=== PATIENT | male | born 1990 | race Caucasian/White ===

== ENCOUNTER 2019-12-18 17:09 | Emergency (ER) | payer MEDICAID ==
[~2019-12-18] VITALS: Ht 175.3 cm; Wt 67.6 kg
[2019-12-18 17:18] VITALS: Ht 175.3 cm; Wt 67.6 kg
[2019-12-18 17:59] VITALS: BP 138/90
== END 2019-12-18 17:59 | disposition home or self-care (01) ==
LOC: ED 17:09
DX: B02.9 Zoster without complications (principal)